=== PATIENT | female | born 1995 | race Caucasian/White ===

== ENCOUNTER 2025-08-30 14:54 | Outpatient (CLI) | payer OTHER, SELFPAY ==
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
--- NOTE | ~2025-08-30 | US_ITS ---
EXAMINATION: US soft tissue lower back, 08/30/2025 14:30 DAIRY [employer] HISTORY: mass of soft tissue Comparison: None Technique: Soto-scale and color Doppler images were obtained. Findings: Correlating with the palpable area there is a deep subcutaneous solid-appearing lesion measuring 2.3 x 1 cm without abnormal flow, the lesion appears mobile IMPRESSION: Subcutaneous lesions detailed above possible lipoma but incompletely evaluated. Contrast-enhanced CT or MRI is recommended Reviewed, dictated and finalized at location P. [facility] [employer] IMPRESSION: Subcutaneous lesions detailed above possible lipoma but incompletel y evaluated. Contrast-enhanced CT or MRI is recommended
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
== END 2025-08-30 14:55 | disposition home or self-care (01) ==
DX: M79.9 Soft tissue disorder, unspecified (principal)
CPT/HCPCS: 76705